=== PATIENT | male | born 1985 | race African-American/Black ===

== ENCOUNTER 2025-03-20 22:20 | Emergency (ER) | payer MEDICAID ==
[~2025-03-20] VITALS: Ht 182.9 cm; Wt 82.0 kg
[2025-03-20 22:36] VITALS: O2SAT 98
[2025-03-20 22:45] VITALS: BP 107/68; PULSE 103; RESP 18; TEMP 36.9; O2SAT 97
[2025-03-21] MEDS ORDERED: ONDANSETRON HCL 4MG/2ML INJ IV ONE
[2025-03-21] MEDS ORDERED: KETOROLAC 15MG/ML VIAL IV ONE
[2025-03-21] MEDS ORDERED: FAMOTIDINE 20MG/2ML VIAL IV ONE
[2025-03-21] MEDS ORDERED: SODIUM CHLORIDE 0.9% 1,000 ML IV ONE
== END 2025-03-21 00:35 | disposition left against medical advice (07) ==
LOC: ER 22:20 → CMPBEDREQ 03-22 07:39
DX: R10.84 Generalized abdominal pain (principal); R11.2 Nausea with vomiting, unspecified; J45.909 Unspecified asthma, uncomplicated
CPT/HCPCS: 99283; 93005; J7030